=== PATIENT | male | born 1965 | race African-American/Black ===

== ENCOUNTER 2020-10-13 15:21 | Emergency (ER) | payer OTHER ==
[~2020-10-13] VITALS: Ht 182.9 cm; Wt 115.7 kg
[~2020-10-13 15:21] MED LIST: CATAPRES0.2 MG PO; NOHOMEMEDICATIONS; ULTRAM 50MG TAB50 MG PO
[2020-10-13 15:26] VITALS: BP 147/89
[2020-10-13] MEDS ORDERED: AUGMENTIN 875-1 EACH PO (15:52)
== END 2020-10-13 16:10 | disposition home or self-care (01) ==
LOC: ER 15:21
DX: S01.21XA Laceration without foreign body of nose, initial encounter (principal); I10 Essential (primary) hypertension; Z79.899 Other long term (current) drug therapy; W22.8XXA Striking against or struck by other objects, initial encounter; Y93.89 Activity, other specified; Y92.89 Other specified places as the place of occurrence of the external cause; Y99.8 Other external cause status